=== PATIENT | female | born 1960 | race Caucasian/White ===

== ENCOUNTER 2018-01-18 15:32 | Outpatient (CLI) | payer BC ==
--- NOTE | 2018-01-19 10:39 | MMO ---
BILATERAL SCREENING MAMMOGRAM: HISTORY: Annual screening examination. COMPARISON: Previous exams not available for comparison as they were done over 10 years ago and have been purged. Films are reviewed with the assistance of computer-aided detection. FINDINGS: Scattered fibroglandular changes of both breasts are noted. Small nodular-appearing densities seen i n the outer aspect of the right breast on the CC projection only is difficult to definitively visuali ze on the MLO view. No suspicious calcifications. IMPRESSION: BI-RADS category 0 - assessment incomplete. Further imaging required, in this case a focal spot vi ew of the right breast in the area marked. If this density persists on the CC projection, additional views may be needed to localize and ultrasound may be required. BIRADS 0: Incomplete: Need Additional Imaging Evaluation and/or Prior Mammograms for Comparison POS: FRE[facility]OM
== END 2018-01-18 15:33 | disposition home or self-care (01) ==
LOC: SCSMAMMO 15:32
PROVIDERS: ATTEND Family Medicine
DX: Z12.31 Encounter for screening mammogram for malignant neoplasm of breast (principal)
CPT/HCPCS: 77067

== ENCOUNTER 2018-01-22 13:34 | Outpatient (CLI) | payer BC | END 2018-01-22 13:35 | disposition home or self-care (01) | LOC: BICMAMMO 13:34 | PROVIDERS: ATTEND Family Medicine | DX: R92.2 Inconclusive mammogram (principal) | CPT/HCPCS: G0279 ==

== ENCOUNTER 2018-03-19 06:56 | Outpatient (CLI) | payer BC ==
--- NOTE | 2018-03-19 08:12 | ULT ---
THYROID ULTRASOUND: HISTORY: Elevated thyroid lab. COMPARISON: None. TECHNIQUE: Sagittal and transverse imaging of the thyroid gland is performed. FINDINGS: The thyroid isthmus measures 0.1 cm. The right thyroid lobe measures 2.7 x 1.1 x 0.6 cm. The left t hyroid lobe measures 2.7 x 0.8 x 0.8 cm. In the upper pole right thyroid lobe is 0.1 x 0.2 x 0.2 cm solid echotexture lesion. IMPRESSION: Single lesion in the right thyroid lobe with a TRIRADS level of TR3. Given the size of the lesion, a dditional imaging is not warranted. POS: FRE[facility]OM
== END 2018-03-19 06:57 | disposition home or self-care (01) ==
LOC: SCSULT 06:56
PROVIDERS: ATTEND Family Medicine
DX: R76.0 Raised antibody titer (principal); E07.9 Disorder of thyroid, unspecified
CPT/HCPCS: 76536

== ENCOUNTER 2020-07-06 16:30 | Outpatient (CLI) | payer BC | END 2020-07-06 16:31 | disposition home or self-care (01) | LOC: SLEEPLAB 16:30 | PROVIDERS: ATTEND Family Medicine | DX: G47.9 Sleep disorder, unspecified (principal); G47.33 Obstructive sleep apnea (adult) (pediatric); R06.83 Snoring; G47.00 Insomnia, unspecified; E66.9 Obesity, unspecified; Z68.28 Body mass index [BMI] 28.0-28.9, adult | CPT/HCPCS: 95806 ==

== ENCOUNTER 2024-12-29 09:06 | Outpatient (CLI) | payer BC | END 2024-12-29 09:07 | disposition home or self-care (01) | LOC: SCSRAD 09:06 | PROVIDERS: ATTEND Nurse Practitioner Family | DX: M25.511 Pain in right shoulder (principal); M19.011 Primary osteoarthritis, right shoulder ==

== ENCOUNTER 2025-01-12 15:21 | Outpatient (CLI) | payer BC | END 2025-01-12 15:22 | disposition home or self-care (01) | LOC: SCSMRI 15:21 | PROVIDERS: ATTEND Family Medicine | DX: M25.511 Pain in right shoulder (principal); M75.111 Incomplete rotator cuff tear or rupture of right shoulder, not specified as traumatic; M75.51 Bursitis of right shoulder; M19.011 Primary osteoarthritis, right shoulder ==